=== PATIENT | female | born 1985 | race Caucasian/White ===

== ENCOUNTER 2020-02-05 06:21 | Inpatient (IN) | payer OTHER, SELFPAY ==
[2020-02-05] VITALS (69 sets, daily range): BP systolic 91–131; BP diastolic 44–86; PULSE 69–143; RESP 16; TEMP 37–37.4; O2SAT 98–100; BMI 26.6
[2020-02-05 07:21] LABS: Basophils Percent Auto 0.2 % (0.2-1.2); Eosinophils Absolute Auto 0.1 K/mm3 (0-0.3); Eosinophils Percent Auto 0.8 % (0-4.4); Hematocrit 37.5 % (37.0-47.0); Hemoglobin 12.7 g/dL (12.0-15.0); Immature Granulocyte Absolute 0.06 K/mm3 (0.00-0.031); Immature Granulocyte Percent A 0.6 % (0-0.5); Lymphocytes Absolute Auto 1.74 K/mm3 (0.9-3.2); Lymphocytes Percent Auto 17.9 % (18.3-44.2); Mean Corpuscular HGB Conc 33.9 g/dl (32-36); Mean Corpuscular Hemoglobin 32.2 pg (26-34); Mean Corpuscular Volume 94.9 fl (80-100); Mean Platelet Volume 10.3 fl (7.4-10.4); Monocytes Absolute Auto 0.5 K/mm3 (0.1-0.6); Monocytes Percent Auto 5.5 % (2.6-8.5); Neutrophils Absolute Auto 7.3 K/mm3 (1.3-6.7); Platelet Count Result 174 k/mm3 (150-375); Red Blood Count 3.95 M/mm3 (4.2-5.4); Red Cell Distribution Width 13.1 % (11.5-14.5); White Blood Count 9.7 K/mm3 (4.5-10.0)
--- NOTE | 2020-02-05 07:32 | LDADM ---
This patient, Rhina Perkins, was admitted to Labor/Delivery/Recovery 104 on 02/05/20 at 06:21. Plans for labor, pain management and were discussed with patient. Patient/family oriented to hospital policies and general routines including ID bracelet, bed and alarms, visiting hours, pain management, procedures, bathroom and other care routines, personal items, smoking policy, room service/diet and guest tray routines, infant security routines, and visiting hours. Patient/Family are encouraged to report perceived risks to care and to ask questions if they do not understand what they are told or what they should do. See OBIX for further documentation.
--- NOTE | 2020-02-05 07:44 | P.HP_ITS ---
H&P: HPI History of Present Illness Date/Time: 02/05/20 07:44 Cheif Complaint: iol Narrative: Rhina Perkins is a 34 year old female 002 whose last menstrual period was 05/08/2019, EDC is 02/12/2020, presents at 39 weeks gestation for induction of labor. was complicated by low- lying placenta which eventually resolved. She is negative for group B strep. Her cervix is favorable Review of Systems Review of Systems: All systems reviewed & are unremarkable except as noted in HPI and below PMFSH Family History Family History Grandparent Hypertension Father Family history of coronary artery disease Mother Family history of malignant neoplasm of breast in first degree relative Social History Social History Smoking status: Never smoker Alcohol intake: current Substance use: never Gender identity (if verbalized by the patient): Female Spiritual care concerns: No Meds Home Medications and Allergies Home Medications Medication Instructions Recorded Confirmed Type PNV cmb#95-ferrous fumarate-FA 1 tablet PO DAILY 01/18/20 01/18/20 History [] Allergies Allergy/AdvReac Type Severity Reaction Status Date / Time Penicillins Allergy Unknown Verified 01/08/16 10:39 Sulfa (Sulfonamide Allergy Unknown Verified 01/08/16 10:39 Antibiotics) Vital Signs Vital Signs - 24 hr 02/05/20 06:50 02/05/20 07:00 02/05/20 07:30 Temperature Pulse Rate 114 H 112 H 94 Blood Pressure 116/84 118/75 114/72 02/05/20 07:40 Temperature 99.2 F Pulse Rate Blood Pressure Exam Const: General: no acute distress Eyes: General: appearance normal, both eyes and all related structures Neck: Neck: supple and no JVD Thyroid: thyroid normal Resp: Effort & Inspection: normal respiratory effort Auscultation: clear to auscultation bilaterally Cardio: Rate: regular rate Rhythm: regular rhythm GI: Inspection: non-distended GI Palp: Yes Soft to palpation, No Tenderness to palpation present (GI) and No Guarding due to palpation present (GI) Auscultation: normal bowel sounds : General: Yes other ( cervix 3/90/1. AROM clear. FHTs reassuring) Skin: General skin exam: no rashes or lesions noted Extrem: General: normal to inspection and no edema Psych: Mental Status: mental status grossly normal Affect: normal affect H&P: Results Labs Labs: Short CBC 02/05/20 Range/Units 07:11 WBC 9.7 (4.5-10.0) K/mm3 Hgb 12.7 (12.0-15.0) g/dL Hct 37.5 (37.0-47.0) % Plt Count 174 (150-375) k/mm3 Assessment and Plan Additional Plan impression: Term Plan: Medical induction of labor. Spontaneous vaginal delivery is expected. She iss an epidural candidate
[2020-02-05 08:13] LABS: HIV 1/2 Ab P24 Ag Result Negative (Negative)
[2020-02-05] MEDS: OXYTOCIN 30 UNITS/NS 500 ML 30 UNITS/500 ML BAG IV CONT (08:39)
[2020-02-05] MEDS: LACTATED RINGERS 1,000 ML 125 ML IV CONT ×3 (08:39→17:16)
--- NOTE | 2020-02-05 09:34 | WPDANESEPPF ---
Anes - Initial Pre Proc Eval Date/Time: 02/05/20 09:34 Surgeon: Rashad Hinojosa MD Pre Op Diagnosis: Induction of Labor Patient Data Age: 34 Gender: F Height: 1.68 m Weight: 75 kg Last Vital Signs Temp 37.3 C 02/05/20 07:40 Pulse 82 02/05/20 09:30 BP 114/75 02/05/20 09:30 Pulse Ox 100 02/05/20 09:32 Allergies Allergy/AdvReac Type Severity Reaction Status Date / Time Penicillins Allergy Unknown Verified 01/08/16 10:39 Sulfa (Sulfonamide Allergy Unknown Verified 01/08/16 10:39 Antibiotics) Home Medications Medication Instructions Recorded Confirmed Type PNV cmb#95-ferrous fumarate-FA 1 tablet PO DAILY 01/18/20 01/18/20 History [] Laboratory Tests 02/05/20 02/05/20 02/05/20 07:11 07:11 07:11 WBC 9.7 K/mm3 K/mm3 (4.5-10.0) RBC 3.95 M/mm3 L M/mm3 (4.2-5.4) Hgb 12.7 g/dL g/dL (12.0-15.0) Hct 37.5 % % (37.0-47.0) MCV 94.9 fl fl (80-100) MCH 32.2 pg pg (26-34) MCHC 33.9 g/dl g/dl (32-36) RDW 13.1 % % (11.5-14.5) Plt Count 174 k/mm3 k/mm3 (150-375) MPV 10.3 fl fl (7.4-10.4) Immature Gran % (Auto) 0.6 % H % (0-0.5) Neut % (Auto) 75.0 % H % (45.5-73.1) Lymph % (Auto) 17.9 % L % (18.3-44.2) [place] % (Auto) 5.5 % % (2.6-8.5) Eos % (Auto) 0.8 % % (0-4.4) Baso % (Auto) 0.2 % % (0.2-1.2) Lymph # (Auto) 1.74 K/mm3 K/mm3 (0.9-3.2) [place] # (Auto) 0.5 K/mm3 K/mm3 (0.1-0.6) Eos # (Auto) 0.1 K/mm3 K/mm3 (0-0.3) Baso # (Auto) 0.0 K/mm3 K/mm3 (0.0-0.1) Abs Immat Gran (auto) 0.06 K/mm3 H K/mm3 (0.00-0.031) Absolute Neuts (auto) 7.3 K/mm3 H K/mm3 (1.3-6.7) Absolute Nucleated RBC 0.0 K/mm3 K/mm3 (0.0-0.012) Nucleated RBC % 0.0 % % (0.0-0.2) RPR Pending HIV 1&2 Ab/P24 Ag 4thGn Negative (Negative) Blood Type Antibody Screen 02/05/20 07:11 WBC RBC Hgb Hct MCV MCH MCHC RDW Plt Count MPV Immature Gran % (Auto) Neut % (Auto) Lymph % (Auto) [place] % (Auto) Eos % (Auto) Baso % (Auto) Lymph # (Auto) [place] # (Auto) Eos # (Auto) Baso # (Auto) Abs Immat Gran (auto) Absolute Neuts (auto) Absolute Nucleated RBC Nucleated RBC % RPR HIV 1&2 Ab/P24 Ag 4thGn Blood Type A Positive Antibody Screen Negative Patient hx anesthesia problems: none Family hx anesthesia problems: none [facility] Family History Family History Grandparent Hypertension Father Family history of coronary artery disease Mother Family history of malignant neoplasm of breast in first degree relative Social History Social History Smoking status: Never smoker Alcohol intake: current Substance use: never Gender identity (if verbalized by the patient): Female Spiritual care concerns: No Anes - Eval Final PreProcedure Day of Procedure 02/05/20 09:34 Patient weight: overweight ASA classification: II Emergent: no Anesthesia type and monitoring: regional epidural Informed Consent: The patient's anesthetic plan and its attendant risks and benefits were discussed with the patient/family/POA. Questions were solicited and answers provided to the satisfaction of the patient/family/POA.
--- NOTE | 2020-02-05 10:49 | PCWOUND ---
WOCN NOTE Referral for pressure ulcer assessment was charted in error. no assessment needed.
--- NOTE | 2020-02-05 11:57 | PM.OBPNVD ---
OB - PN: Subj Subjective Date/time seen: 02/05/20 11:57 cx 4/80/-1 arom clear fhts ok epidural working OB - PN: Obj Data Labs CBC & Chem 7: 02/05/20 07:11 Labs: Laboratory Results - last 24 hr 02/05/20 02/05/20 02/05/20 07:11 07:11 07:11 WBC 9.7 RBC 3.95 L Hgb 12.7 Hct 37.5 MCV 94.9 MCH 32.2 MCHC 33.9 RDW 13.1 Plt Count 174 MPV 10.3 Immature Gran % (Auto) 0.6 H Neut % (Auto) 75.0 H Lymph % (Auto) 17.9 L [place] % (Auto) 5.5 Eos % (Auto) 0.8 Baso % (Auto) 0.2 Lymph # (Auto) 1.74 [place] # (Auto) 0.5 Eos # (Auto) 0.1 Baso # (Auto) 0.0 Abs Immat Gran (auto) 0.06 H Absolute Neuts (auto) 7.3 H Absolute Nucleated RBC 0.0 Nucleated RBC % 0.0 HIV 1&2 Ab/P24 Ag 4thGn Negative Blood Type A Positive Antibody Screen Negative OB - PN A/P Time Spent With Patient Time: Total time spent is greater than 50% in coordination of care (as documented) at patient's floor/unit and/or counseling patient:
--- NOTE | 2020-02-05 16:01 | P.PNOB_ITS ---
OB - PN: Subj Subjective Date/time seen: 02/05/20 16:01 Interval history: cx 4 by rn exam fhts reassuring iupc in OB - PN: Obj Data Labs CBC & Chem 7: 02/05/20 07:11 Labs: Laboratory Results - last 24 hr 02/05/20 02/05/20 02/05/20 07:11 07:11 07:11 WBC 9.7 RBC 3.95 L Hgb 12.7 Hct 37.5 MCV 94.9 MCH 32.2 MCHC 33.9 RDW 13.1 Plt Count 174 MPV 10.3 Immature Gran % (Auto) 0.6 H Neut % (Auto) 75.0 H Lymph % (Auto) 17.9 L [place] % (Auto) 5.5 Eos % (Auto) 0.8 Baso % (Auto) 0.2 Lymph # (Auto) 1.74 [place] # (Auto) 0.5 Eos # (Auto) 0.1 Baso # (Auto) 0.0 Abs Immat Gran (auto) 0.06 H Absolute Neuts (auto) 7.3 H Absolute Nucleated RBC 0.0 Nucleated RBC % 0.0 HIV 1&2 Ab/P24 Ag 4thGn Negative Blood Type A Positive Antibody Screen Negative OB - PN A/P Time Spent With Patient Time: Total time spent is greater than 50% in coordination of care (as documented) at patient's floor/unit and/or counseling patient:
[2020-02-05] MEDS: METHYLERGONOVINE MALEATE 0.2 MG/ML VIAL IM (18:33)
--- NOTE | 2020-02-05 18:33 | PM.OBPRVD ---
OB - Delivery Note Procedure Delivery date: 02/05/20 Procedure: mil Induction method: AROM Delivery augmentation: pitocin Delivery monitor: external FHT Route of delivery: Episiotomy description: None Laceration Description: None Quantitative Blood Loss (ml): 358 Anesthesia type: Epidural Disposition: floor Baby Date of : 02/05/20 Time of : 18:22 Weeks of gestation at delivery: 39 Infant gender: Female Weight (pounds): 8 Weight (ounces): 11 presentation: vertex position: Right Occiput Anterior Placenta delivery description: Spontaneous cord vessel description: 3 Vessels score one minute: 9 score five minutes: 9
[2020-02-05] MEDS: OXYTOCIN 30 UNITS/NS 500 ML 30 UNITS/500 ML BAG 125 UNITS IV CONT (18:58)
[2020-02-05] MEDS: WITCH HAZEL 40 PADS 1 PAD TOPICAL (21:15)
[2020-02-05] MEDS: BENZOCAINE 20% AER SPR (*SP) 56 GM CAN 1 SPRAY TOPICAL (21:15)
[2020-02-05] MEDS: IBUPROFEN 600 MG TABLET PO (21:17)
--- NOTE | 2020-02-05 21:22 | OBPPTRN ---
Patient transferred to post room #282 via wheelchair. Support person present. Oriented to unit, room, information board, rooming in, admission packet and security measures. Patient verbalizes understanding. with patient.
[2020-02-06 05:33] LABS: Hematocrit 35.3 % (37.0-47.0)
[2020-02-06 06:59] LABS: Rapid Plasma Reagin Non-Reactive (NonReactive)
[2020-02-06 07:45] VITALS: BP 109/72; PULSE 70; RESP 18; TEMP 36.9; O2SAT 100
--- NOTE | 2020-02-06 07:45 | P.DS_ITS ---
DS: Admitting Diagnosis Admitting Diagnosis Admitting Diagnosis: term iup DS: Summary Hospital Course Hospital Course: To reiterate, she underwent successful medical induction of labor on 02/05/2020. Her hospital course was unremarkable Time Spent with Patient Time attestation: Total time spent providing and/or coordinating discharge ser vices: The patient was admitted for induction of labor. She underwent spontaneous vaginal delivery on 02/05/2020. The procedure was unremarkable. Her hospital course was unremarkable. She remained afebrile. She was up, ambulating, voiding without difficulty, passing gas, eating regular diet. Exam Const: General: no acute distress Eyes: General: appearance normal, both eyes and all related structures Neck: Neck: supple and no JVD Thyroid: thyroid normal Resp: Effort & Inspection: normal respiratory effort Auscultation: clear to auscultation bilaterally Cardio: Rate: regular rate Rhythm: regular rhythm GI: Inspection: non-distended GI Palp: Yes Soft to palpation, No Tenderness to palpation present (GI) and No Guarding due to palpation present (GI) Auscultation: normal bowel sounds : General: Yes bladder normal to palpation External Female Exam: normal external appearance Speculum Exam - Vagina: normal vaginal discharge and No vaginal bleeding Speculum Exam - Cervix: nontender Bimanual exam- vagina & uterus: bladder normal to palpation and No Cervical tenderness present OB/external & speculum: No vaginal bleeding Skin: General skin exam: no rashes or lesions noted Extrem: General: normal to inspection and no edema Psych: Mental Status: mental status grossly normal Affect: normal affect DS: Data Data Completed and Pending Labs on day of discharge: Labs from last 24 hours 02/06/20 02/05/20 02/05/20 05:17 07:11 07:11 Hgb Pending Hct Pending RPR Non-reactive HIV 1&2 Ab/P24 Ag 4thGn Blood Type A Positive Antibody Screen Negative 02/05/20 07:11 Hgb Hct RPR HIV 1&2 Ab/P24 Ag 4thGn Negative Blood Type Antibody Screen Discharge Plan Discharge Attending physician on discharge: Rashad Hinojosa Discharging Clinician: Rashad Hinojosa Patient Disposition: Home, Self-Care Activity: may shower, no straining and pelvic rest Diet: heart healthy Wound Care Instructions: follow printed instructions Patient Instructions: Antibiotic Form Stand Alone Forms: General Discharge Information Follow-up/Referrals: Rashad Hinojosa MD [Physician] - Discharge Medications: Continued PNV cmb#95-ferrous fumarate-FA [] 28 mg iron- 800 mcg Tablet 1 tablet PO DAILY RF: 0 Date of admission: 02/05/20 06:21 Primary Care Provider: Chase Lockhart Admitting Provider: Rashad Hinojosa Attending physician on admission: Rashad Hinojosa Condition: Stable
[2020-02-07 07:47] VITALS: BP 104/70; PULSE 78; RESP 16; TEMP 36.7; O2SAT 99
== END 2020-02-06 20:37 | disposition home or self-care (01) | DRG 807 ==
LOC: ANHLDR 06:29 → ANHOB2 21:51
PROVIDERS: Admitting Provider Obstetrics & Gynecology; PCP Family Medicine; Visit Provider Obstetrics & Gynecology
DX: O80 Encounter for full-term uncomplicated delivery (principal); Z37.0 Single live birth; Z3A.39 39 weeks gestation of pregnancy
CPT/HCPCS: 36415; 85014; 85018; 85025; 86592; 86703; 86850; 86900; 86901; A9270; G0432; J2210; J2590; J2795; J7120

== ENCOUNTER 2022-03-29 10:37 | Outpatient (CLI) | payer OTHER, SELFPAY ==
--- NOTE | ~2022-03-29 | MM_ITS ---
EXAMINATION: MM screening toma BI w felecia HISTORY: Screening mammogram; baseline examination TECHNIQUE: Craniocaudal and mediolateral oblique 3-D tomosynthesis images were obtained and synthetic 2-D images were generated. CAD analysis was submitted and interpreted. COMPARISON: None BREAST PARENCHYMAL COMPOSITION: The breasts are heterogeneously dense, which may obscure small masses . FINDINGS: There is no evidence of suspicious mass, calcification, or architectural distortion to sugg est malignancy in either breast. There has been no suspicious interval change. IMPRESSION: 1. No mammographic evidence of malignancy. 2. Recommend routine screening mammography in one year. BI-RADS Category 1: Negative Reviewed, dictated and finalized at location A. [employer]
== END 2022-03-29 10:38 | disposition home or self-care (01) ==
PROVIDERS: PCP Family Medicine; Visit Provider Obstetrics & Gynecology
DX: Z12.31 Encounter for screening mammogram for malignant neoplasm of breast (principal)
CPT/HCPCS: 77063; 77067

== ENCOUNTER 2023-05-10 08:56 | Outpatient (CLI) | payer BC, SELFPAY ==
[2023-05-10 09:57] LABS: Basophils Percent Auto 0.3 % (0.2-1.2); Eosinophils Absolute Auto 0.1 K/mm3 (0-0.3); Eosinophils Percent Auto 1.4 % (0-4.4); Hematocrit 38.7 % (37.0-47.0); Hemoglobin 12.5 g/dL (12.0-15.0); Immature Granulocyte Absolute 0.02 K/mm3 (0.00-0.031); Immature Granulocyte Percent A 0.3 % (0-0.5); Lymphocytes Absolute Auto 1.71 K/mm3 (0.9-3.2); Lymphocytes Percent Auto 23.9 % (18.3-44.2); Mean Corpuscular HGB Conc 32.3 g/dl (32-36); Mean Corpuscular Hemoglobin 29.8 pg (26-34); Mean Corpuscular Volume 92.4 fl (80-100); Mean Platelet Volume 10.3 fl (7.4-10.4); Monocytes Absolute Auto 0.5 K/mm3 (0.1-0.6); Monocytes Percent Auto 6.4 % (2.6-8.5); Neutrophils Absolute Auto 4.9 K/mm3 (1.3-6.7); Neutrophils Percent Auto 67.7 % (45.5-73.1); Platelet Count Result 195 k/mm3 (150-375); Red Blood Count 4.19 M/mm3 (4.2-5.4); Red Cell Distribution Width 12.3 % (11.5-14.5); White Blood Count 7.2 K/mm3 (4.5-10.0)
[2023-05-10 10:10] LABS: Anion Gap 5 mmol/L (8-16); Blood Urea Nitrogen 11 mg/dL (7-17); Calcium 9.1 mg/dL (8.4-10.2); Carbon Dioxide 29 mmol/L (22-30); Chloride 105 mmol/L (98-107); Cholesterol 134 mg/dL (0-200); Estimated Glomerular Filt Rate > 60; Glucose 92 mg/dL (65-110); HDL Direct 46 mg/dL; Potassium 3.8 mmol/L (3.4-5.0); Sodium 139 mmol/L (137-145); Triglycerides 52 mg/dL (<150)
[2023-05-10 10:20] LABS: LDL Cholesterol Direct 80 mg/dL
[2023-05-10 10:48] LABS: Vitamin D 25 Hydroxy 42.3 ng/mL
== END 2023-05-10 08:57 | disposition home or self-care (01) ==
LOC: ANHLAB 08:58
PROVIDERS: PCP Family Medicine; Visit Provider Physician Assistant Medical
DX: Z00.00 Encounter for general adult medical examination without abnormal findings (principal); Z13.220 Encounter for screening for lipoid disorders; Z13.21 Encounter for screening for nutritional disorder; Z13.0 Encounter for screening for diseases of the blood and blood-forming organs and certain disorders involving the immune mechanism; E55.9 Vitamin D deficiency, unspecified
CPT/HCPCS: 36415; 80048; 80061; 82306; 85025

== ENCOUNTER 2023-07-20 16:19 | Outpatient (CLI) | payer BC, SELFPAY ==
--- NOTE | ~2023-07-20 | MM_ITS ---
EXAMINATION: MM screening toma BI w felecia HISTORY: Screening TECHNIQUE: Craniocaudal and mediolateral oblique 3-D tomosynthesis images were obtained and synthetic 2-D images were generated. CAD analysis was submitted and interpreted. COMPARISON: 03/29/2022 BREAST PARENCHYMAL COMPOSITION: Dense: The breasts are heterogeneously dense, which may obscure small masses FINDINGS: There is no evidence of suspicious mass, calcification, or architectural distortion to sugg est malignancy in either breast. There has been no suspicious interval change. IMPRESSION: 1. No mammographic evidence of malignancy. 2. Recommend routine screening mammography in one year. BI-RADS Category 1: Negative Reviewed, dictated and finalized at location B.
== END 2023-07-20 16:20 | disposition home or self-care (01) ==
PROVIDERS: PCP Family Medicine; Visit Provider Obstetrics & Gynecology
DX: Z12.31 Encounter for screening mammogram for malignant neoplasm of breast (principal)
CPT/HCPCS: 77063; 77067